=== PATIENT | male | born 1975 | race African-American/Black ===

== ENCOUNTER 2017-01-09 12:03 | Emergency (ER) | payer OTHER ==
[~2017-01-09] VITALS: Ht 170.2 cm; Wt 81.6 kg
[~2017-01-09 12:03] MED LIST: PREDNISONE10 M2 PO
[2017-01-09] MEDS ORDERED: FLAGYL500 MG PO (13:22)
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
[2017-01-09 13:26] VITALS: BP 124/80
== END 2017-01-09 13:28 ==
LOC: ERH 12:03
DX: A59.9 Trichomoniasis, unspecified (principal)
CPT/HCPCS: 81003; 87491; 87591

== ENCOUNTER 2017-01-29 23:37 | Emergency (ER) | payer OTHER ==
[~2017-01-29] VITALS: Ht 170.2 cm; Wt 83.9 kg
[~2017-01-29 23:37] MED LIST changes: +FLAGYL500 MG PO
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
[2017-01-30 01:07] VITALS: BP 120/82
== END 2017-01-30 01:09 ==
LOC: ERH 23:37
DX: R30.0 Dysuria (principal)
CPT/HCPCS: 81003; 87086; 87491; 87591; 96372; J0456; J0696

== ENCOUNTER 2018-03-06 12:34 | Emergency (ER) | payer OTHER ==
[~2018-03-06] VITALS: Ht 170.2 cm; Wt 74.8 kg
[2018-03-06 12:42] VITALS: BP 126/88
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
== END 2018-03-06 13:34 ==
LOC: ERH 12:34
DX: N34.2 Other urethritis (principal)
CPT/HCPCS: 81003; 87086; 87491; 87591; 96372; J0696

== ENCOUNTER 2018-07-24 12:37 | Emergency (ER) | payer OTHER ==
[~2018-07-24] VITALS: Ht 170.2 cm; Wt 72.6 kg
[2018-07-24 12:40] VITALS: BP 102/71
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
== END 2018-07-24 13:08 ==
LOC: ERH 12:37
DX: N34.2 Other urethritis (principal)
CPT/HCPCS: 81003; 87086; 87491; 87591; 96372; J0696